=== PATIENT | female | born 1950 | race Caucasian/White ===

== ENCOUNTER → 2020-02-04 09:12 | Outpatient (CLI) | payer MEDICARE, MEDICAID, SELFPAY ==
--- NOTE | ~2020-02-04 | XR_ITS ---
XR thoracic spine 2V DATE: 02/04/2020 10:33 INDICATION: Thoracic back pain. Neck pain. Low back pain. TECHNIQUE: AP, lateral, swimmer views COMPARISON: None FINDINGS: Status post anterior cervical spine fusion at C6-7 by plate and screws. Diffuse osteopenia. There is minimal levoscoliosis of the thoracic spine. No thoracic spine fracture or bone destruction is evident. The thoracic pedicles appear intact. No pa raspinal soft tissue thickening. There is mild degenerative spurring of the thoracic spine. Vascular graft overlies the right vessels left of midline. Status post cholecystectomy. IMPRESSION: Diffuse osteopenia Minimal levoscoliosis Mild degenerative spurring Reviewed, dictated and finalized at location B.
--- NOTE | ~2020-02-04 | XR_ITS ---
XR lumbar spine 6V w bending DATE: 02/04/2020 10:33 INDICATION: Low back pain. TECHNIQUE: AP, bilateral oblique, coned lateral lumbosacral and neutral, upright flexion and extensio n lateral views COMPARISON: None FINDINGS: Diffuse osteopenia. Minimal dextroscoliosis. No fracture or bone destruction, spondylolysis or spondylolisthesis. No instability on flexion or extension. The sacroiliac joints are intact. Surgical clips overlie the midabdomen and right upper quadrant. IMPRESSION: Diffuse osteopenia Reviewed, dictated and finalized at location B. IMPRESSION: Diffuse osteopenia
--- NOTE | ~2020-02-04 | XR_ITS ---
XR cervical spine min 6V DATE: 02/04/2020 10:33 INDICATION: Neck pain, thoracic back pain, low back pain TECHNIQUE: Standing AP, lateral, flexion and extension lateral, open-mouth and bilateral oblique view s. Swimmer's view. COMPARISON: None FINDINGS: Plate and screws are noted anteriorly at C6-7. There is approximately 1.5 mm anterolisthesis at C3-4 and C4-5 in neutral, increased to approximately 1.8 mm at C3-4 and C4-5 in flexion, reduced to approximately 1 mm in extension. There is straightening of the cervical spine. C1 and C2 are normally aligned and the odontoid process is intact. No fracture or dislocation or lock ed facet. There is moderate moderate degenerative disease at C5-6. There is some encroachment primarily anteriorly upon the left C6 neural foramen due to degenerative s purring at the left C5-6 uncovertebral joint. IMPRESSION: Status post anterior cervical spine fusion C6-7 Straightening Anterolisthesis at C3-4 and C4-5 Encroachment upon left C6 neural foramen anteriorly due to degenerative change at C5-6 left uncoverte bral joint Reviewed, dictated and finalized at location B. IMPRESSION: Status post anterior cervical spine fusion C6-7 Straightening Anterolisthesis at C3-4 and C4-5 Encroachment upon left C6 neural foramen anteriorly due to degenerative change at C5-6 left uncovertebral joint
--- NOTE | ~2020-02-04 | MR_ITS ---
EXAMINATION: MR cervical spine wo con EXAM DATE: 02/04/2020 11:29 INDICATION: Cervical radiculopathy, pain. TECHNIQUE: Multi-sequential, multiplanar MR images of the cervical spine were obtained without contra st. Axial T2, axial T2 MERGE sequence. Sagittal T1, T2, T2 fat saturation images also obtained. Th ere is no prior study for comparison. FINDINGS: Anterior, interbody fusion C6-7. There is mild to moderate disc disease at C5-6, mild at C 7-T1 with 2 mm anterolisthesis. There are no suspicious marrow signal abnormalities. The spinal cord signal intensity and intrinsic morphology is normal. Cervicomedullary junction is normal in appearanc e. Level by level evaluation: C2-C3: Disc does not extend beyond the endplate margin. Uncovertebral joint arthropathy: None. Facet joint arthropathy: Moderate right, mild to moderate left. Neural foraminal stenosis: No stenosis. Central canal stenosis: No stenosis. C3-C4: Disc does not extend beyond the endplate margin. Uncovertebral joint arthropathy: Mild to moderate left, mild right. Facet joint arthropathy: Moderate to severe left, moderate right. Neural foraminal stenosis: Mild left. Central canal stenosis: No stenosis. C4-C5: Disc does not extend beyond the endplate margin. Uncovertebral joint arthropathy: Mild bilateral. Facet joint arthropathy: Moderate bilateral. Neural foraminal stenosis: Moderate right, mild to moderate left. Central canal stenosis: Mild right. C5-C6: There is a mild diffuse disc bulge. Uncovertebral joint arthropathy: Moderate to severe bilateral. Facet joint arthropathy: Mild to moderate bilateral. Neural foraminal stenosis: Severe bilateral. Central canal stenosis: Mild. C6-C7: This level is fused. Uncovertebral joint arthropathy: None. Facet joint arthropathy: Mild. Neural foraminal stenosis: No stenosis. Central canal stenosis: No stenosis. C7-T1: There is a minimal diffuse disc bulge. Uncovertebral joint arthropathy: Moderate bilateral. Facet joint arthropathy: Moderate left, mild right. Neural foraminal stenosis: Mild to moderate left. Central canal stenosis: No stenosis. IMPRESSION: 1. C5-6 severe bilateral neural foraminal stenosis. Lesser spondylosis above. 2. C6-7 fusion. Reviewed, dictated and finalized at location A.
== END ==
PROVIDERS: Visit Provider Physician Assistant Medical
DX: M54.12 Radiculopathy, cervical region (principal); Z98.1 Arthrodesis status; M85.88 Other specified disorders of bone density and structure, other site
CPT/HCPCS: 72052; 72070; 72114; 72141

== ENCOUNTER → 2020-07-01 09:21 | Outpatient (CLI) | payer MEDICARE, MEDICAID, SELFPAY ==
--- NOTE | ~2020-07-01 | MR_ITS ---
EXAMINATION: MR lumbar spine wo con EXAM DATE: 07/01/2020 09:56 INDICATION: Low back pain, muscle spasm. History of falls. TECHNIQUE: Multi-sequential, multiplanar MR images of the lumbar spine were obtained without contrast . Sagittal T1, T2, T2 fat saturation images. Axial T2 weighted images. There is no prior study for comparison. FINDINGS: Mild lumbar disc disease, but heights are maintained. There are scattered focal signal abno rmalities consistent with hemangiomata, otherwise without focal suspicious marrow signal abnormalitie s. The conus medullaris terminates at the T12-L1 level and has normal signal intensity and morphology . The vertebral bodies are aligned in the AP dimension. Paraspinal soft tissue is unremarkable. Level by level evaluation: T11-12: There is a minimal diffuse disc bulge. Facet arthropathy: Mild. Neural foraminal stenosis: No stenosis. Central canal stenosis: No stenosis. T12-L1: Disc does not extend beyond the endplate margin. Facet arthropathy: Mild. Neural foraminal stenosis: No stenosis. Central canal stenosis: No stenosis. L1-L2: There is a minimal diffuse disc bulge. Facet arthropathy: Mild. Neural foraminal stenosis: No stenosis. Central canal stenosis: No stenosis. L2-L3: There is a mild diffuse disc bulge. Facet arthropathy: Mild. Neural foraminal stenosis: No stenosis. Central canal stenosis: No stenosis. L3-L4: There is a mild diffuse disc bulge. Facet arthropathy: Mild. Neural foraminal stenosis: No stenosis. Central canal stenosis: No stenosis. L4-L5: There is a mild diffuse disc bulge. Facet arthropathy: Mild. Neural foraminal stenosis: Mild bilateral. Central canal stenosis: No stenosis. L5-S1: There is a mild diffuse disc bulge. Facet arthropathy: Mild to moderate right, mild left. Neural foraminal stenosis: Mild right. Central canal stenosis: No stenosis. IMPRESSION: 1. Mild lumbar spondylosis. Reviewed, dictated and finalized at location A. IMPRESSION: 1. Mild lumbar spondylosis.
== END ==
PROVIDERS: Visit Provider Nurse Practitioner Adult Health
DX: M47.26 Other spondylosis with radiculopathy, lumbar region (principal)
CPT/HCPCS: 72148